=== PATIENT | male | born 1990 | race American Indian/Alaskan Native ===

== ENCOUNTER 2017-03-04 07:18 | Emergency (ER) | payer SELFPAY ==
[2017-03-04] MEDS ORDERED: NACL 0.9% 1000 ML 1,000 ML IV ONE (08:13)
--- NOTE | 2017-03-04 08:31 | Emergency Department Report ---
HPI - General Chief Complaint: Syncope Time Seen by Provider: 03/04/17 08:12 - HPI HPI: Room 17 The patient is a 26-year-old male presenting with a chief complaint of syncope and facial pain. Patient states last night he was sitting down and began to "feel woozy." Patient states he began "seen dark and "and then lost consciousness. Patient states he awakened on the ground and had pain in the left jaw, tongue and left ear. Patient has smell of alcohol on his breath. 10:37 The patient's mother is now at bedside and states family members who witnessed the fall states the patient stood up and then passed out as if he stood up too quickly. The patient landed on concrete Location: [See above] Duration: [See above] Quality: Pain Severity: Moderate Modifying factors: [see above] Context: [see above] Mode of transportation: [not driving] ED Past Medical Hx - Past Medical History Previous Medical History?: No - Surgical History Past Surgical History?: Yes Additional Surgical History: left ankle fracture repair - Social History Smoking Status: Current Every Day Smoker (1/3 pack per day) Substance Use Type: Alcohol (moderate), Marijuana ED Review of Systems ROS: Stated complaint: FALL , FACE INJURY Other details as noted in HPI Comment: All other systems reviewed and negative Constitutional: denies: chills, fever Eyes: denies: eye pain, eye discharge, vision change ENT: other (left jaw pain) Respiratory: denies: cough, shortness of breath, wheezing Cardiovascular: denies: chest pain, palpitations Endocrine: no symptoms reported Gastrointestinal: denies: abdominal pain, nausea, diarrhea Genitourinary: denies: urgency, dysuria Musculoskeletal: denies: back pain, joint swelling, arthralgia Skin: denies: rash, lesions Neurological: other (syncope) Psychiatric: denies: anxiety, depression Hematological/Lymphatic: denies: easy bleeding, easy bruising Physical Exam - Physical Exam Vital Signs: Vital Signs 03/04/17 03/04/17 03/04/17 07:48 08:23 08:25 Temperature 98.4 F 98.2 F Pulse Rate 73 98 H Respiratory 20 12 12 Rate Blood Pressure 90/50 Blood Pressure 108/59 [Right] O2 Sat by Pulse 99 94 94 Oximetry Physical Exam: GENERAL: The patient is well-developed well-nourished male lying on stretcher with evidence of blood coming from the left ear canal. Alcohol on his breath. Patient does not appear to be in acute distress HEENT: Normocephalic. There is blood coming from the left auditory canal. There is no hemotympanum on the. Visualized left TM appears intact. Source of blood from the left auditory canal not seen. Extraocular motions are intact. Patient has moist mucous membranes. NECK: Supple. Trachea midline. No axial tenderness to palpation CHEST/LUNGS: Clear to auscultation. There is no respiratory distress noted. HEART/CARDIOVASCULAR: Regular. There is no tachycardia. There is no gallop rub or murmur. ABDOMEN: Abdomen is soft, nontender. Patient has normal bowel sounds. There is no abdominal distention. SKIN: There is no rash. There is no edema. There is no diaphoresis. NEURO: The patient is awake and oriented but appears to be under the influence of a substance possibly alcohol. The patient is cooperative. The patient has no focal neurologic deficits. The patient has normal speech MUSCULOSKELETAL: There is no limitation range of motion. ED Course Vital Signs 03/04/17 03/04/17 03/04/17 07:48 08:23 08:25 Temperature 98.4 F 98.2 F Pulse Rate 73 98 H Respiratory 20 12 12 Rate Blood Pressure 90/50 Blood Pressure 108/59 [Right] O2 Sat by Pulse 99 94 94 Oximetry - Consultations Consultation #1: 03/04/17 10:35 [facility] trauma transfer line called 03/04/17 10:56 Case discussed with [facility] Dr. Don- states patient can be transferred to the [facility] emergency department for evaluation - Laceration /Wound Repair Lower Jaw Wound Location: face (Chin) Wound Length (cm): 3 Wound's Depth, Shape: irregular Wound Explored: no foreign body removed Irrigated w/ Saline (ccs): 500 Betadine Prep?: Yes Anesthesia: Lidocaine w/ Epi (2%) Volume Anesthetic (ccs): 9 Wound Repaired With: sutures Suture Size/Type: 5:0, proline (Prolene) Number of Sutures: 5 (simple interrupted) Layer Closure?: No Sterile Dressing Applied?: No ED Medical Decision Making - Lab Data Result diagrams: 03/04/17 08:23 03/04/17 08:23 Laboratory Tests 03/04/17 03/04/17 03/04/17 08:23 08:23 08:23 WBC 8.1 RBC 4.78 Hgb 15.1 Hct 45.7 H MCV 96 H MCH 32 MCHC 33 RDW 14.2 Plt Count 239 Add Manual Diff Complete Total Counted 100 Seg Neuts % (Manual) 68.0 Band Neutrophils % 10.0 Lymphocytes % (Manual) 11.0 L Reactive Lymphs % (Man) 0 Monocytes % (Manual) 3.0 Eosinophils % (Manual) 6.0 H Basophils % (Manual) 0 Metamyelocytes % 2.0 Myelocytes % 0 Promyelocytes % 0 Blast Cells % 0 Nucleated RBC % Not Reportable Seg Neutrophils # Man 5.5 Band Neutrophils # 0.8 Lymphocytes # (Manual) 0.9 L Abs React Lymphs (Man) 0.0 Monocytes # (Manual) 0.2 Eosinophils # (Manual) 0.5 H Basophils # (Manual) 0.0 Metamyelocytes # 0.2 Myelocytes # 0.0 Promyelocytes # 0.0 Blast Cells # 0.0 WBC Morphology Not Reportable Hypersegmented Neuts Not Reportable Hyposegmented Neuts Not Reportable Hypogranular Neuts Not Reportable Smudge Cells Not Reportable Toxic Granulation Not Reportable Toxic Vacuolation Not Reportable Dohle Bodies Not Reportable Pelger-Huet Anomaly Not Reportable Johnson Rods Not Reportable Platelet Estimate Appears normal Clumped Platelets Not Reportable Plt Clumps, EDTA Not Reportable Large Platelets Not Reportable Giant Platelets Not Reportable Platelet Satelliting Not Reportable Plt Morphology Comment Not Reportable RBC Morphology Not Reportable Dimorphic RBCs Not Reportable Polychromasia Not Reportable Hypochromasia Not Reportable Poikilocytosis Not Reportable Anisocytosis Few Microcytosis Not Reportable Macrocytosis Not Reportable Spherocytes Not Reportable Pappenheimer Bodies Not Reportable Sickle Cells Not Reportable Target Cells Not Reportable Tear Drop Cells Not Reportable Ovalocytes Not Reportable Helmet Cells Not Reportable [place] Bodies Not Reportable [place] Rings Not Reportable Meena Cells Not Reportable Bite Cells Not Reportable Crenated Cell Not Reportable Elliptocytes Not Reportable Acanthocytes (Spur) Not Reportable Rouleaux Not Reportable Hemoglobin C Crystals Not Reportable Schistocytes Not Reportable Malaria parasites Not Reportable David Bodies Not Reportable Hem Pathologist Commnt No PT 14.5 INR 1.07 APTT 23.4 L D-Dimer 277.64 H Sodium 138 Potassium 4.3 Chloride 97.0 L Carbon Dioxide 23 Anion Gap 22 BUN 15 Creatinine 1.3 Estimated GFR > 60 BUN/Creatinine Ratio 12 Glucose 100 Calcium 9.3 Total Bilirubin 0.30 AST 41 H ALT 52 Alkaline Phosphatase 65 Total Creatine Kinase 342 H CK-MB (CK-2) 3.2 CK-MB (CK-2) Rel Index 0.9 Troponin T < 0.010 NT-Pro-B Natriuret Pep 51.60 Total Protein 7.6 Albumin 4.6 Albumin/Globulin Ratio 1.5 Urine Color Urine Turbidity Urine pH Ur Specific [place] Urine Protein Urine Glucose (UA) Urine Ketones Urine Blood Urine Nitrite Urine Bilirubin Urine Urobilinogen Ur Leukocyte Esterase Urine WBC (Auto) Urine RBC (Auto) U Epithel Cells (Auto) Hyaline Casts Urine Mucus Urine Opiates Screen Urine Methadone Screen Ur Barbiturates Screen Ur Phencyclidine Scrn Ur Amphetamines Screen U Benzodiazepines Scrn Plasma/Serum Alcohol 03/04/17 03/04/17 03/04/17 08:23 09:38 09:38 WBC RBC Hgb Hct MCV MCH MCHC RDW Plt Count Add Manual Diff Total Counted Seg Neuts % (Manual) Band Neutrophils % Lymphocytes % (Manual) Reactive Lymphs % (Man) Monocytes % (Manual) Eosinophils % (Manual) Basophils % (Manual) Metamyelocytes % Myelocytes % Promyelocytes % Blast Cells % Nucleated RBC % Seg Neutrophils # Man Band Neutrophils # Lymphocytes # (Manual) Abs React Lymphs (Man) Monocytes # (Manual) Eosinophils # (Manual) Basophils # (Manual) Metamyelocytes # Myelocytes # Promyelocytes # Blast Cells # WBC Morphology Hypersegmented Neuts Hyposegmented Neuts Hypogranular Neuts Smudge Cells Toxic Granulation Toxic Vacuolation Dohle Bodies Pelger-Huet Anomaly Johnson Rods Platelet Estimate Clumped Platelets Plt Clumps, EDTA Large Platelets Giant Platelets Platelet Satelliting Plt Morphology Comment RBC Morphology Dimorphic RBCs Polychromasia Hypochromasia Poikilocytosis Anisocytosis Microcytosis Macrocytosis Spherocytes Pappenheimer Bodies Sickle Cells Target Cells Tear Drop Cells Ovalocytes Helmet Cells [place]ne[place] Bodies [place] Rings [place] Cells Bite Cells Crenated Cell Elliptocytes Acanthocytes (Spur) Rouleaux Hemoglobin C Crystals Schistocytes Malaria parasites David Bodies Hem Pathologist Commnt PT INR APTT D-Dimer Sodium Potassium Chloride Carbon Dioxide Anion Gap BUN Creatinine Estimated GFR BUN/Creatinine Ratio Glucose Calcium Total Bilirubin AST ALT Alkaline Phosphatase Total Creatine Kinase CK-MB (CK-2) CK-MB (CK-2) Rel Index Troponin T NT-Pro-B Natriuret Pep Total Protein Albumin Albumin/Globulin Ratio Urine Color Yellow Urine Turbidity Clear Urine pH 5.0 Ur Specific [place] 1.020 Urine Protein 100 mg/dl Urine Glucose (UA) Neg Urine Ketones Neg Urine Blood Neg Urine Nitrite Neg Urine Bilirubin Neg Urine Urobilinogen < 2.0 Ur Leukocyte Esterase Neg Urine WBC (Auto) 3.0 Urine RBC (Auto) 1.0 U Epithel Cells (Auto) 1.0 Hyaline Casts 46 Urine Mucus Few Urine Opiates Screen Presumptive negative Urine Methadone Screen Presumptive negative Ur Barbiturates Screen Presumptive negative Ur Phencyclidine Scrn Presumptive negative Ur Amphetamines Screen Presumptive negative U Benzodiazepines Scrn Presumptive negative Plasma/Serum Alcohol 0.02 - EKG Data -: EKG Interpreted by Ia EKG shows normal: sinus rhythm Rate: normal - EKG Data When compared to previous EKG there are: previous EKG unavailable Interpretation: other (no ischemic changes seen) - Radiology Data Radiology results: report reviewed (CT head, CT cervical spine, CT facial bones) , image reviewed (CT head, CT cervical spine, CT facial bones, CT chest) CT HEAD WITHOUT CONTRAST: HISTORY: Syncope. Serial contiguous axial images were obtained through the cranium. Intravenous contrast material was not administered. The ventricles are normal in size and appearance. There is no mass effect or midline shift. No areas of abnormally increased or decreased attenuation are seen. No mass lesion is seen. There is a small amount of fluid in the left maxillary sinus. A vertical fracture through the left mandibular condyle is partially imaged. Please refer to CT facial bones performed the same day. IMPRESSION: No acute intracranial injury is appreciated. Left mandible fracture. Fluid in the left maxillary sinus which may represent retained secretions. No obvious fracture lines are identified CT brain. Transcribed By: TTR Dictated By: YENI FRANCO JR, MD Electronically Authenticated By: YENI FRANCO JR, MD Signed Date/Time: 03/04/17952 DD/ 0 TD/TT: 03/04/17952 CT FACIAL BONES WITHOUT CONTRAST: HISTORY: Left jaw pain after fall. TECHNIQUE: Helical CT images with sagittal and coronal CT reformations. FINDINGS: An acute vertical fracture line is identified through the left mandibular condyle and neck. A 3 mm bony fragment is seen at the fracture site consistent with minimal comminution. The medial half of the left mandibular condyle is displaced inferiorly 4 mm and anteriorly 5 mm. There is partial dislocation of the left temporomandibular joint. The remainder of the mandible and right TMJ are within normal limits. There is a small fluid level the left maxillary sinus with no sinus wall fracture detected. The orbital cavities, zygomas, nasal bones and skull base are intact. The upper cervical spine is in normal alignment. Left facial soft tissue swelling is noted. IMPRESSION: Left mandible fracture as described. Transcribed By: TTR Dictated By: YENI FRANCO JR, MD Electronically Authenticated By: YENI FRANCO JR, MD Signed Date/Time: 03/04/17957 DD/ 4 TD/TT: 03/04/17957 CT SCAN OF THE CERVICAL SPINE: HISTORY: Syncope, head injury, neck injury. TECHNIQUE: Contiguous 1.25 mm axial images of the cervical spine were obtained. Sagittal and coronal reformatted images. FINDINGS: There is normal alignment of the cervical spine. The body, pedicles and posterior ligaments appear normal. No evidence of fracture or subluxation is seen. The spinal canal appears normal. The prevertebral soft tissues appear normal. IMPRESSION: Unremarkable CT of the cervical spine. No acute process is noted. Transcribed By: TTR Dictated By: YENI FRANCO JR, MD Electronically Authenticated By: YENI FRANCO JR, MD Signed Date/Time: 03/04/17953 DD/ 3 TD/TT: 03/04/17953 CT chest (read by radiologist)-no large pulmonary embolus is detected. Unremarkable CT chest - Differential Diagnosis syncope, alcohol intoxication, mandible fracture, seizure Critical care attestation.: If time is entered above; I have spent that time in minutes in the direct care of this critically ill patient, excluding procedure time. ED Disposition Clinical Impression: Mandible fracture, Chin laceration Disposition: DC/TX-70 ANOTHER TYPE HLTHCARE Is pt being admited?: No Does the pt Need Aspirin: No Condition: Stable Instructions: Suture Care (ED), Laceration (ED), Jaw Fracture in Adults (ED) Additional Instructions: Return to the emergency department immediately should you develop worsening symptoms, fever, inability to tolerate food or liquid or any other concerns. Time of Disposition: 10:59 (awaiting transport to [facility] ED)
[2017-03-04 09:01] LABS: Hematocrit 45.7 % (35.5-45.6); Hemoglobin 15.1 gm/dl (11.8-15.2); Mean Corpuscular HGB Conc 33 % (32-34); Mean Corpuscular Hemoglobin 32 pg (28-32); Mean Corpuscular Volume 96 fl (84-94); Platelet Count 239 K/mm3 (140-440); Red Blood Count 4.78 M/mm3 (3.65-5.03); Red Cell Distribution Width 14.2 % (13.2-15.2); White Blood Count 8.1 K/mm3 (4.5-11.0)
[2017-03-04 09:07] LABS: Creatine Kinase MB 3.2 ng/mL (0.0-4.0)
[2017-03-04 09:09] LABS: Alanine Aminotransferase 52 units/L (7-56); Albumin 4.6 g/dL (3.9-5); Albumin/Globulin Ratio 1.5 %; Alkaline Phosphatase 65 units/L (35-129); Anion Gap 22 mmol/L; BUN/Creatinine Ratio 12; Blood Urea Nitrogen 15 mg/dL (9-20); Calcium 9.3 mg/dL (8.4-10.2); Carbon Dioxide 23 mmol/L (22-30); Creatine Kinase 342 units/L (55-170); Glucose 100 mg/dL (75-100); Potassium 4.3 mmol/L (3.6-5.0); Sodium 138 mmol/L (137-145); Total Protein 7.6 g/dL (6.3-8.2)
[2017-03-04 09:13] LABS: INR 1.07 (0.87-1.13)
[2017-03-04 09:14] LABS: Partial Thromboplastin Time 23.4 Sec. (24.2-36.6)
[2017-03-04 09:39] LABS: Urine Drugs of Abuse Note Disclamer
[2017-03-04] MEDS ORDERED: NACL ONE (09:46)
[2017-03-04 09:49] LABS: Bilirubin,Urine NEG (Negative); Blood,Urine NEG (Negative); Ketones,Urine NEG (Negative); Leukocyte Esterase,Urine NEG (Negative); Mucus,Urine FEW /HPF; Nitrite,Urine NEG (Negative); Urobilinogen,Urine < 2.0 mg/dL (<2.0)
--- NOTE | 2017-03-04 09:57 | Cat Scan Report ---
CT HEAD WITHOUT CONTRAST: HISTORY: Syncope. Serial contiguous axial images were obtained through the cranium. Intravenous contrast material was not administered. The ventricles are normal in size and appearance. There is no mass effect or midline shift. No areas of abnormally increased or decreased attenuation are seen. No mass lesion is seen. There is a small amount of fluid in the left maxillary sinus. A vertical fracture through the left mandibular condyle is partially imaged. Please refer to CT facial bones performed the same day. IMPRESSION: No acute intracranial injury is appreciated. Left mandible fracture. Fluid in the left maxillary sinus which may represent retained secretions. No obvious fracture lines are identified CT brain.
--- NOTE | 2017-03-04 09:58 | Cat Scan Report ---
CT SCAN OF THE CERVICAL SPINE: HISTORY: Syncope, head injury, neck injury. TECHNIQUE: Contiguous 1.25 mm axial images of the cervical spine were obtained. Sagittal and coronal reformatted images. FINDINGS: There is normal alignment of the cervical spine. The body, pedicles and posterior ligaments appear normal. No evidence of fracture or subluxation is seen. The spinal canal appears normal. The prevertebral soft tissues appear normal. IMPRESSION: Unremarkable CT of the cervical spine. No acute process is noted.
--- NOTE | 2017-03-04 10:02 | Cat Scan Report ---
CT FACIAL BONES WITHOUT CONTRAST: HISTORY: Left jaw pain after fall. TECHNIQUE: Helical CT images with sagittal and coronal CT reformations. FINDINGS: An acute vertical fracture line is identified through the left mandibular condyle and neck. A 3 mm bony fragment is seen at the fracture site consistent with minimal comminution. The medial half of the left mandibular condyle is displaced inferiorly 4 mm and anteriorly 5 mm. There is partial dislocation of the left temporomandibular joint. The remainder of the mandible and right TMJ are within normal limits. There is a small fluid level the left maxillary sinus with no sinus wall fracture detected. The orbital cavities, zygomas, nasal bones and skull base are intact. The upper cervical spine is in normal alignment. Left facial soft tissue swelling is noted. IMPRESSION: Left mandible fracture as described.
[2017-03-04 10:23] LABS: Basophils % (Manual) 0 % (0.0-1.8); Blastocytes % (Manual) 0 %
[2017-03-04 10:24] LABS: Anisocytosis Few; Diff Status Complete
--- NOTE | 2017-03-04 10:27 | Cat Scan Report ---
CTA CHEST: History: Syncope, elevated d-dimer. Technique: Helical CT following IV contrast. Pulmonary embolus protocol. Sagittal and coronal reformatted images. Rotational MIP images. Findings: Contrast bolus is slightly suboptimal. There is adequate opacification of the central large pulmonary arteries. No large central pulmonary embolus is detected. There is pleural opacification of the distal, small pulmonary arteries but they are grossly within normal limits. Tiny distal emboli cannot be excluded. The thyroid gland, tracheobronchial tree, esophagus, heart, pericardium, mediastinal vessels, lung gabriel and bony thorax are unremarkable. Impression: Slightly limited contrast bolus for pulmonary embolus. No large pulmonary embolus is detected. Unremarkable CT chest.
[2017-03-04] MEDS ORDERED: XYLOCAINE 2%/ EPI 1:200,000 INFILTRATI ONE (10:58)
[2017-03-04] MEDS ORDERED: SUBLIMAZE IV ONE (10:58)
[2017-03-04] MEDS ORDERED: ZOFRAN IV ONE (10:58)
[2017-03-04] MEDS ORDERED: NACL 0.9% 500 ML IR ONE (11:01)
[2017-03-04 12:45] VITALS: BP 115/61
== END 2017-03-04 13:00 | disposition other institution (70) ==
LOC: ED 07:18
DX: S02.609A Fracture of mandible, unspecified, initial encounter for closed fracture (principal); S01.81XA Laceration without foreign body of other part of head, initial encounter; F12.10 Cannabis abuse, uncomplicated; F17.200 Nicotine dependence, unspecified, uncomplicated; X58.XXXA Exposure to other specified factors, initial encounter; Y93.9 Activity, unspecified; Y99.9 Unspecified external cause status; Y92.89 Other specified places as the place of occurrence of the external cause
CPT/HCPCS: 12013; 36415; 70450; 70486; 71275; 72125; 80053; 80307; 81001; 82550; 82553; 83880; 84484; 85007; 85025; 85379; 85610; 85730; 87040; 93005; 93010; 96361; 96374; 96375; 99285; G0480; J2405; J3010; J7030; Q9967; 80320

== ENCOUNTER 2021-01-06 18:17 | Emergency (ER) | payer SELFPAY ==
[2021-01-06 18:27] VITALS: BP 115/70
--- NOTE | 2021-01-06 18:59 | Emergency Department Report ---
Suture/Staple Removal - HPI Chief Complaint: Laceration/Recheck/Suture Stated Complaint: SUTURE REMOVAL Time Seen by Provider: 01/06/21 18:32 When Sutures or Leah Placed: 2 weeks Wound Location: left hand, right forearm, right elbow, right foot ED Review of Systems ROS: Stated complaint: SUTURE REMOVAL Other details as noted in HPI Comment: All other systems reviewed and negative ED Past Medical Hx - Surgical History Additional Surgical History: left ankle fracture repair - Social History Smoking Status: Current Every Day Smoker (1/3 pack per day) Substance Use Type: Alcohol (moderate), Marijuana - Medications Home Medications: Home Medications Medication Instructions Recorded Confirmed Last Taken Type Mupirocin [Bactroban 2% OINT] 1 applic TP TID #1 tube 01/06/21 Unknown Rx Sulfamethoxazole/Trimethoprim 1 each PO BID 7 Days #14 tablet 01/06/21 Unknown Rx [Bactrim DS TAB] Suture Removal Exam - Exam General: Vital signs noted. No distress. Alert and acting appropriately. Wound: Yes Pathologic Erythema, Yes Pus, No Tenderness, No Wound Dehiscence Other Systems: All other systems reviewed and are unremarkable. ED Course Vital Signs 01/06/21 18:26 Temperature 98.2 F Pulse Rate 86 Respiratory 20 Rate Blood Pressure 115/70 O2 Sat by Pulse 94 Oximetry ED Recheck MDM - Medical Decision Making Patient is a 30-year-old male presents emergency room with complaints of a suture removal. Patient states that he had the sutures placed at a hospital in [facility] 2 weeks ago. He states that he accidentally broke a piece of glass and suffered multiple lacerations. He states he has seen a small amount of drainage. He denies any increasing pain, numbness or weakness. He states his tetanus was updated while he was at the hospital. No past medical history. No allergies to medications. Vitals are stable. On exam patient has sutures in place to the left hand in between the left thumb and index finger, right posterior forearm, right posterior elbow, right dorsal foot, there are multiple areas of scabbing, there are a few areas of small amount of pus drainage, no obvious area of central fluctuance, there is some mild erythema. There is no drainable abscess at this time. No wound dehiscence. All sutures removed without complication. Patient will be placed on Bactrim and given mupirocin ointment. Discussed the importance of outpatient primary care follow-up. Discussed wound care. Advised return to emergency room for any new or worsening symptoms. Critical care attestation.: If time is entered above; I have spent that time in minutes in the direct care of this critically ill patient, excluding procedure time. ED Disposition Clinical Impression: Encounter for removal of sutures Cellulitis Qualifiers: Site of cellulitis: extremity Site of cellulitis of extremity: upper extremity Laterality: right Qualified Code(s): L03.113 - Cellulitis of right upper limb Disposition: HOME / SELF CARE / HOMELESS Is pt being admited?: No Does the pt Need Aspirin: No Condition: Stable Instructions: Suture Removal, Care After, Cellulitis, Adult Additional Instructions: Please use medication as prescribed. Please wash areas with antibacterial soap and water twice a day and pat dry. Follow-up with a primary care doctor for reexamination. Return to emergency room for any new or worsening symptoms. Prescriptions: Sulfamethoxazole/Trimethoprim [Bactrim DS TAB] 1 each PO BID 7 Days #14 tablet Mupirocin [Bactroban 2% OINT] 1 applic TP TID #1 tube Referrals: AUNG CR MD [Staff Physician] - 3-5 Days [facility] [Provider Group] - 3-5 Days
== END 2021-01-06 19:23 | disposition home or self-care (01) ==
LOC: ED 18:17
DX: L03.113 Cellulitis of right upper limb (principal); F17.210 Nicotine dependence, cigarettes, uncomplicated; Z72.89 Other problems related to lifestyle
CPT/HCPCS: 99282